=== PATIENT | male | born 1960 | race Caucasian/White ===

== ENCOUNTER 2021-02-15 19:52 | Observation (INO) | payer OTHER ==
[~2021-02-15] VITALS: Ht 160 cm; Wt 60.0 kg
--- NOTE | 2021-02-15 20:01 | NUR ---
PT PRESENTS TO ED VIA EMS WITH AMS. PT FOUND IN CELL UNRESPONSE. RECEIVED 2 DOSES NARCAN. GCS 10. PT ESCORTED VIA EMS TO ROOM 9
[2021-02-15 20:32] LABS: HEMATOCRIT 44.9 % (39.0-50.0); HEMOGLOBIN 14.8 g/dl (14.0-18.0); IMMATURE GRANULOCYTES 0.6 % (0.0-5.0); NEUT# 11.76 thou/uL (1.82-7.42); RED BLOOD COUNT 5.1 mill/uL (4.70-6.10); RED CELL DISTRI WIDTH 12.7 % (11.5-15.5)
[2021-02-15 20:52] LABS: ACT PARTIAL THROMBO TIME 20.6 SECONDS (20.0-32.5); ALBUMIN 4.2 g/dL (3.2-5.0); ALKALINE PHOSPHATASE 136 u/l (38-126); ANION GAP 17 (6-22 (CALC)); BUN 38 mg/dL (9-20); BUN/CREATININE RATIO 34 (12-20 (CALC)); CARBON DIOXIDE 22 mmol/l (22-30); CHLORIDE 106 mmol/l (95-108); CREATININE 1.1 mg/dL (0.7-1.3); ETHYL ALCOHOL 0 mg/dl (0-30); GFR > 60 ML/MIN (>=60 (CALC)); GFR FOR AFR.AMER. > 60 ML/MIN (>=60 (CALC)); LIPASE 87 u/l (23-300); MAGNESIUM 2.1 mg/dL (1.6-2.3); POTASSIUM 4.4 mmol/l (3.5-5.1); PROTHROMBIN TIME 10.5 SECONDS (9.0-12.5); SGOT/AST 88 u/l (17-59); SODIUM 141 mmol/l (137-146); TOTAL PROTEIN 7.6 g/dL (6.3-8.2)
--- NOTE | 2021-02-15 22:44 | NUR ---
800 CC URINE FROM STRAIGHT CATH.
[2021-02-15 22:45] LABS: URINE BILIRUBIN - DIPSTICK NEGATIVE (NEGATIVE); URINE BLOOD DIPSTICK LARGE (NEGATIVE); URINE COLOR YELLOW; URINE GLUCOSE - DIPSTICK >=1000 mg/dL (NEGATIVE); URINE KETONE 15 mg/dL (NEGATIVE); URINE LEUK ESTERASE NEGATIVE (NEGATIVE); URINE PROTEIN - DIPSTICK 30 mg/dL (NEG-TRACE); URINE SPECIFIC GRAVITY >=1.030; URINE UROBILINOGEN - DIPSTICK 0.2 E.U./dL (0.2)
[2021-02-15 22:48] LABS: URINE NITRITE - DIPSTICK NEGATIVE (Negative)
[2021-02-15 22:53] LABS: URINE WBC 0-2 WBC/hpf (0-5)
--- NOTE | 2021-02-15 23:30 | NUR ---
PT'S ADMISSION STATUS CHANGED FROM ER TO ICU ADMIT UNDER DR. TERRY AT 2329. PT ADMITTED TO ICU ED HOLD AT THIS TIME.
[2021-02-16] VITALS (16 sets, daily range): BP systolic 146–205; BP diastolic 62–103
--- NOTE | 2021-02-16 01:05 | NUR ---
SMALL PASTY DARK BROWN BM, PT CLEANED AND LINENS CHANGED, GOWN APPLIED, WARM BLANKET APPLIED X2.
--- NOTE | 2021-02-16 01:10 | NUR ---
#18 FR OLIVEROS INSERTED W/O DIFFICULTY.
--- NOTE | 2021-02-16 01:24 | NUR ---
NEUROLOGY TELEPHONE CONSULT COMPLETED BETWEEN DR. ANTONIO AND DR. Olivia ROBISON.
--- NOTE | 2021-02-16 07:15 | NUR ---
PT TO ICU AT THIS TIME VIA STRETCHER WITH NURSE ROHITH AVALOS.
--- NOTE | 2021-02-16 07:47 | NUR ---
RECIEVED FROM ER 9 TO ICU 3 VIA STRETCHER. LETHARGIC DIFFICULT TO AROUSE AT TIMES. PUPILS REACTIVE TO LIGHT. RT PUPIL NOT ROUND HAS THE SHAPE OF AN UPSIDE DOWN TEAR DROP. TWO CORRECTIONS OFFICERS AT BEDSIDE. METAL CUFFS TO BILAT ANKLES AND LT WRIST. OLIVEROS CATH PATENT DRAINING STRAW COLOR FLUID. 18G TO RT AC. NO OPEN AREAS. FUNGAL LIKE REDNESS TO RT HAND AND NELIDA AREA.
--- NOTE | 2021-02-16 09:05 | NUR ---
DR TERRY IN TO SEE PT.
[2021-02-16 10:41] LABS: TSH, 3RD GENERATION 0.33 uIU/mL (0.47 - 4.68)
--- NOTE | 2021-02-16 11:20 | NUR ---
PT TO GO FOR MRI. TRANSPORTED VIA STRETCHER.
--- NOTE | 2021-02-16 12:29 | NUR ---
RETURNED FROM MRI.
--- NOTE | 2021-02-16 14:16 | NUR ---
RECIEVED CRITICAL MRI BRAIN RESULTS. MADE AWARE.
--- NOTE | 2021-02-16 14:27 | NUR ---
RECEIVED ORDERS TO TRANSFER TO HIGHER LEVEL OF CARE.
--- NOTE | 2021-02-16 15:51 | NUR ---
AWAITING BED ASSIGNMENT FROM [facility].
--- NOTE | 2021-02-16 17:17 | NUR ---
RECEIVED CALL FROM LORI AT TRANSFER CENTER PT TO GO TO ROOM 5B08 AT [facility].
--- NOTE | 2021-02-16 17:27 | NUR ---
SPOKE WITH KRIS AT TRANSPORT CENTER ETA FOR PICKUP IS 45MIN-1HR.
--- NOTE | 2021-02-16 17:36 | NUR ---
REPORT GIVEN TO RN AT [facility].
--- NOTE | 2021-02-16 18:36 | NUR ---
TRANSPORT TEAM ON SITE.
--- NOTE | 2021-02-16 18:39 | NUR ---
TRANSPORT TEAM AND CORRECTIONS OFFICERS TRANSFERRED PT FROM BED TO STRETCHER.
== END 2021-02-16 18:39 | disposition short-term general hospital (02) | DRG 65 ==
LOC: ED 19:52 → ED-I 23:08 → ED 23:29 → ED-I 23:30 → ICU 02-16 07:45
PROVIDERS: ADMIT Hospitalist; ATTEND Hospitalist
PROC: 0T9B70Z Drainage of Bladder with Drainage Device, Via Natural or Artificial Opening (ICD-10-PCS; principal; 2021-02-16)
DX: I63.81 Other cerebral infarction due to occlusion or stenosis of small artery (principal); E87.2 Acidosis; G93.49 Other encephalopathy; E86.0 Dehydration; G93.89 Other specified disorders of brain; E11.65 Type 2 diabetes mellitus with hyperglycemia; I10 Essential (primary) hypertension; B19.20 Unspecified viral hepatitis C without hepatic coma

== ENCOUNTER 2021-04-02 08:48 | Emergency (ER) | payer OTHER ==
[~2021-04-02] VITALS: Ht 160 cm; Wt 68.0 kg
[2021-04-02 09:31] LABS: GFR > 60 ML/MIN (>=60 (CALC)); GFR FOR AFR.AMER. > 60 ML/MIN (>=60 (CALC))
[2021-04-02 09:58] LABS: ANION GAP 11 (6-22 (CALC)); CARBON DIOXIDE 25 mmol/l (22-30); CHLORIDE 106 mmol/l (95-108); CREATININE 0.8 mg/dL (0.7-1.3); ETHYL ALCOHOL 0 mg/dl (0-30); GFR > 60 ML/MIN (>=60 (CALC)); GFR FOR AFR.AMER. > 60 ML/MIN (>=60 (CALC)); LIPASE 317 u/l (23-300); POTASSIUM 3.6 mmol/l (3.5-5.1); SODIUM 139 mmol/l (137-146)
[2021-04-02 10:08] LABS: ACT PARTIAL THROMBO TIME 24.1 SECONDS (20.0-32.5)
[2021-04-02 10:28] LABS: TSH, 3RD GENERATION 0.89 uIU/mL (0.47 - 4.68)
[2021-04-02 10:30] LABS: ALBUMIN 2.7 g/dL (3.2-5.0); ALKALINE PHOSPHATASE 65 u/l (38-126); BILIRUBIN, TOTAL 0.6 mg/dL (0.0-1.4); BUN 17 mg/dL (9-20); BUN/CREATININE RATIO 21 (12-20 (CALC)); MAGNESIUM 1.1 mg/dL (1.6-2.3); SGOT/AST 16 u/l (17-59); TOTAL PROTEIN 5.3 g/dL (6.3-8.2)
[2021-04-02 10:38] LABS: HEMATOCRIT 32.4 % (39.0-50.0); HEMOGLOBIN 10.7 g/dl (14.0-18.0); IMMATURE GRANULOCYTES 1.2 % (0.0-5.0); MEAN CELL VOLUME 88.8 fL CALC (80.0-100.0); MEAN CORPUSCULAR HGB 29.3 pG CALC (26.0-32.0); NEUT# 5.9 thou/uL (1.82-7.42); RED BLOOD COUNT 3.65 mill/uL (4.70-6.10); RED CELL DISTRI WIDTH 13.7 % (11.5-15.5)
[2021-04-02 10:47] VITALS: BP 103/61
== END 2021-04-02 10:47 | disposition short-term general hospital (02) | DRG 65 ==
LOC: ED 08:48
DX: I62.9 Nontraumatic intracranial hemorrhage, unspecified (principal); I69.951 Hemiplegia and hemiparesis following unspecified cerebrovascular disease affecting right dominant side; R47.01 Aphasia; R20.0 Anesthesia of skin; I69.920 Aphasia following unspecified cerebrovascular disease; B19.20 Unspecified viral hepatitis C without hepatic coma; I69.998 Other sequelae following unspecified cerebrovascular disease; R26.89 Other abnormalities of gait and mobility; I10 Essential (primary) hypertension; E11.319 Type 2 diabetes mellitus with unspecified diabetic retinopathy without macular edema; I25.10 Atherosclerotic heart disease of native coronary artery without angina pectoris; M48.061 Spinal stenosis, lumbar region without neurogenic claudication; R29.705 NIHSS score 5; Z79.84 Long term (current) use of oral hypoglycemic drugs; Z20.822 Contact with and (suspected) exposure to COVID-19

== ENCOUNTER 2021-08-10 10:24 | Inpatient (IN) | payer OTHER ==
[2021-08-10] VITALS (48 sets, daily range): BP systolic 88–158; BP diastolic 56–86
[~2021-08-10] VITALS: Ht 160 cm; Wt 59.0 kg
--- NOTE | 2021-08-10 10:24 | NUR ---
PT TO ROOM 15 VIA EMS. SHACKLES INTACT ACCOMPANIED BY GUARD.
[2021-08-10 10:49] LABS: GFR > 60 ML/MIN (>=60 (CALC)); GFR FOR AFR.AMER. > 60 ML/MIN (>=60 (CALC))
[2021-08-10 10:58] LABS: IMMATURE GRANULOCYTES 0.6 % (0.0-5.0); MEAN CELL VOLUME 89.6 fL CALC (80.0-100.0); MEAN CORPUSCULAR HGB 29.7 pG CALC (26.0-32.0); MEAN CORPUSCULAR HGB CONC 33.2 g/dL CAL (32.0-36.0); NEUT# 7.97 thou/uL (1.82-7.42); RED BLOOD COUNT 4.71 mill/uL (4.70-6.10); RED CELL DISTRI WIDTH 12.8 % (11.5-15.5)
[2021-08-10 11:00] LABS: HEMATOCRIT 42.2 % (39.0-50.0)
[2021-08-10] MEDS ORDERED: ASPIRIN81 MG PO (11:05)
[2021-08-10] MEDS ORDERED: GLIPIZIDE ER5 MG PO (11:06)
[2021-08-10] MEDS ORDERED: LIPITOR20 M1 PO (11:06)
[2021-08-10] MEDS ORDERED: LISINOPRIL2.5 MG PO (11:07)
[2021-08-10] MEDS ORDERED: METFORMIN HCL1000 M1 PO (11:07)
[2021-08-10] MEDS ORDERED: MILK OF MAG30 ML/UDC PO (11:08)
[2021-08-10 11:14] LABS: BUN 26 mg/dL (8-23); BUN/CREATININE RATIO 22 (12-20 (CALC)); CARBON DIOXIDE 27 mmol/l (22-30); CHLORIDE 104 mmol/l (95-108); CREATININE 1.2 mg/dL (0.7-1.3); ETHYL ALCOHOL 0 mg/dl (0-30); GFR > 60 ML/MIN (>=60 (CALC)); GFR FOR AFR.AMER. > 60 ML/MIN (>=60 (CALC)); LIPASE 235 u/l (23-300); SGOT/AST 23 u/l (19-48); SODIUM 139 mmol/l (137-146)
[2021-08-10 11:15] LABS: ALBUMIN 4.2 g/dL (3.2-5.0); ALKALINE PHOSPHATASE 107 u/l (38-126); ANION GAP 13 (6-22 (CALC)); BILIRUBIN, TOTAL 0.9 mg/dL (0.0-1.4); POTASSIUM 4.5 mmol/l (3.5-5.1); TOTAL PROTEIN 7.5 g/dL (6.3-8.2)
[2021-08-10 11:17] LABS: ACT PARTIAL THROMBO TIME 23.6 SECONDS (20.0-32.5); PROTHROMBIN TIME 10.1 SECONDS (9.0-12.5)
--- NOTE | 2021-08-10 12:00 | NUR ---
PATIENT EVALUATION BY TELE NEURO. PREVIOUS STROKE WAS 3 MONTHS AGO. FALL ON SUNDAY WITH EXACERBATION OF LEFT SIDED WEAKNESS ON SUNDAY.
[2021-08-10 13:38] LABS: URINE BLOOD DIPSTICK NEGATIVE (NEGATIVE); URINE COLOR YELLOW; URINE GLUCOSE - DIPSTICK NEGATIVE (NEGATIVE); URINE KETONE TRACE mg/dL (NEGATIVE); URINE LEUK ESTERASE NEGATIVE (NEGATIVE); URINE PH 5.5 (4.5-8.0); URINE PROTEIN - DIPSTICK NEGATIVE (NEG-TRACE); URINE SPECIFIC GRAVITY >=1.030; URINE UROBILINOGEN - DIPSTICK 0.2 E.U./dL (0.2)
[2021-08-10 13:52] LABS: URINE BILIRUBIN - DIPSTICK NEGATIVE (NEGATIVE); URINE NITRITE - DIPSTICK NEGATIVE (Negative)
--- NOTE | 2021-08-10 15:55 | NUR ---
PATIENT HAS BEEN IN ROOM 15 WITH GUARDS AT BEDSIDE. HE HAS NO CHANGE IN HIS CONDITION SINCE ARRIVAL.
--- NOTE | 2021-08-10 16:04 | NUR ---
DISCUSSED CHANGING PO ASA TO RECTAL UNTIL SPEECH CAN EVALUATE PATIENT. DR. ANTONIO UNABLE TO INPUT RECTAL ASA DUE TO CHART BEING LOCKED FOR MEDICATION INPUT. INFORMING ICU.
--- NOTE | 2021-08-10 16:09 | NUR ---
RECTAL ASA ORDER INITIATED. ADMINISTERED. PATIENT TO ICU.
--- NOTE | 2021-08-10 16:45 | NUR ---
PT ARRIVED TO UNI ALERT AND ORIENTED. FOLLOWING COMMANDS. LEFT ARM FLACID, LEFT LEG DRIFTS AND HITS BED. RIGHT ARM AND RIGHT LEG STRONG. PARCIAL LEFT SIDED FACIAL PARALYSIS. PT DOES WEAR GLASSES, BUT DOES NOT HAVE IT WITH HIM. DIFFICULTY READING BUT ABLE TO IDENTIFY IMAGES. PT DOES WISPER VERY LOW WHEN SPEAKING, INFORMED BY GUARDS AND PT THAT IS BASELINE SINCE HIS LAST STROKE. PT REPORTS PAIN ON HIS LEFT SIDE. VITAL SIGNS WITHIN NORMAL LIMITS. CALL LIGHT WITHIN REACH. GUARDS AT BEDSIDE.
--- NOTE | 2021-08-10 19:53 | NUR ---
ASSESSMENT COMPLETED NOTED. PATIENT IS SITTING UP IN BED WATCHING TELEVISION. STATE OFFICERS ARE AT THE BEDSIDE. NO CURRENT COMPLAINTS OF PAIN OR DISCOMFORT. PATIENT IS NOTED TO HAVE AN OCCASIONAL COUGH WITH THROAT CLEARING. PATIENT IS ALSO NOTED TO BE FLACCID WITH THE LEFT ARM AND MINIMAL MOVEMENT OF THE LEFT LEG. NO ACUTE DISTRESS NOTED AT THIS TIME. I WILL CONTINUE TO MONITOR NO FURTHER COMMENTS AT THIS TIME.
--- NOTE | 2021-08-10 22:00 | NUR ---
Patient is assited to the bedside commode. The patient is unable to stand on his on due to left sided weakness. Patient had a large soft light brown bowel movement. The patient was cleaned and repositioned back to bed.
[2021-08-11] VITALS (90 sets, daily range): BP systolic 93–186; BP diastolic 56–102
--- NOTE | 2021-08-11 | NUR ---
Patient is resting quietly in bed. No acute changes noted.
--- NOTE | 2021-08-11 03:39 | NUR ---
Patient is resting quietly in bed. Patient is noted to snore and oxygen level drops to high 80's, nasal canula at 2 liters placed of added oxygen support.
--- NOTE | 2021-08-11 04:01 | NUR ---
Patient is resting quietly in bed. Patient is about to get his am labs drawn. No further comments at this time.
[2021-08-11 04:26] LABS: HEMATOCRIT 36.9 % (39.0-50.0); HEMOGLOBIN 12.4 g/dl (14.0-18.0); MEAN CELL VOLUME 88.9 fL CALC (80.0-100.0); MEAN CORPUSCULAR HGB 29.9 pG CALC (26.0-32.0); MEAN CORPUSCULAR HGB CONC 33.6 g/dL CAL (32.0-36.0); RED BLOOD COUNT 4.15 mill/uL (4.70-6.10); RED CELL DISTRI WIDTH 12.8 % (11.5-15.5)
[2021-08-11 04:43] LABS: ANION GAP 9 (6-22 (CALC)); BUN 24 mg/dL (8-23); BUN/CREATININE RATIO 24 (12-20 (CALC)); CALCULATED LDLCHOLESTEROL 34 mg/dL (62-129 (CALC)); CARBON DIOXIDE 24 mmol/l (22-30); CHLORIDE 110 mmol/l (95-108); CHOLESTEROL HDL RATIO 2.5 (<4.4 (CALC)); GFR > 60 ML/MIN (>=60 (CALC)); GFR FOR AFR.AMER. > 60 ML/MIN (>=60 (CALC)); HDL CHOLESTEROL 36 mg/dL (>=40); MAGNESIUM 1.7 mg/dL (1.6-2.3); POTASSIUM 4.1 mmol/l (3.5-5.1); SODIUM 138 mmol/l (137-146); TOTAL CHOLESTEROL 88 mg/dl (0-199); TOTAL TRIGLYCERIDES 91 mg/dl (30-149); VLDL CHOLESTROL 18 mg/dl (4-45 (CALC))
--- NOTE | 2021-08-11 06:24 | NUR ---
Patient continues to rest quietly in bed. No acute changes noted at this time. I will continue to monitor.
[2021-08-11] MEDS ORDERED: HYDRALAZINE50 MG PO (09:43)
--- NOTE | 2021-08-11 10:34 | NUR ---
PT SEEN AWAKE, ALERT, ORIENTED X 3. PT COMMUNICATES IN WHISPER, LACKING STRENGTH TO SPEAK NORMAL VOLUME. PT IS WEAK ON RIGHT SIDE FROM PREVIOUS STROKE, NOW SEEN FLACCID TO LEFT ARM AND LEG FROM NEW STROKE. NIH SCALE WAS 9 UPON INITIAL ASSESSMENT. GUARDS X 2 AT BEDSIDE.
--- NOTE | 2021-08-11 14:09 | NUR ---
PT REMAINS BEFORE, AT REST IN THE BED WITHOUT ABILITY TO STAND. PHYSICAL THERAPIST RO AT BEDSIDE FOR EVALUATION AND TREATMENT. PT PROVIDED LORTAB FOR LEFT SHOULDER PAIN.
--- NOTE | 2021-08-11 16:06 | NUR ---
PT REMAINS BEFORE, NO CHANGE IN STATUS. PT PROVIDED PAIN MED FOR LEFT SHOULDER DISCOMFORT. NO EXACERBATION OF STROKE NOTED.
--- NOTE | 2021-08-11 19:00 | NUR ---
REPORT RECEIVED FROM Juanito HERNANDEZ AT BEDSIDE. CARE OF PT ASSUMED AT THIS TIME.
--- NOTE | 2021-08-11 20:03 | NUR ---
POINT OF CARE GLUCOSE 192mg/dl REPORTED BY Kirsty PINO CNA.
--- NOTE | 2021-08-11 21:14 | NUR ---
SCHEDULED MEDICATION AND REQUESTED PRN LORTAB FOR LEFT SHOULDER PAIN ADMINISTERED. SEE E-MAR. WATER PROVIDED PER PT'S REQUEST. PT DENIES FURTHER NEEDS OR REQUESTS AT THIS TIME. PT SWALLOWS PILLS WHOLE W/O DIFFICULTY. CALL MELO WITHIN REACH. AGREES TO CALL PRN.
--- NOTE | 2021-08-11 22:10 | NUR ---
EHR ORDER FOR AM LABS RECEIVED, SEE PHYSICIAN ORDERS.
[2021-08-12] VITALS (41 sets, daily range): BP systolic 120–188; BP diastolic 68–106
--- NOTE | 2021-08-12 00:04 | NUR ---
PT APPEARS TO BE SLEEPING COMFORTABLY. RESPIRATIONS REGULAR AND UNLABORED. NO APPARENT DISTRESS. CALL MELO REMAINS WITHIN REACH.
--- NOTE | 2021-08-12 02:11 | NUR ---
PT APPEARS TO BE SLEEPING COMFORTABLY. RESPIRATIONS REGULAR AND UNLABORED. NO APPARENT DISTRESS. CALL MELO REMAINS WITHIN REACH.
--- NOTE | 2021-08-12 04:19 | NUR ---
PT APPEARS TO BE SLEEPING COMFORTABLY. RESPIRATIONS REGULAR AND UNLABORED. NO APPARENT DISTRESS. CALL MELO REMAINS WITHIN REACH.
--- NOTE | 2021-08-12 05:10 | NUR ---
Anthony BRADLEY CPT AT BEDSIDE COLLECTING AM LABS.
[2021-08-12 05:34] LABS: HEMATOCRIT 35.2 % (39.0-50.0); HEMOGLOBIN 12.2 g/dl (14.0-18.0); MEAN CELL VOLUME 87.6 fL CALC (80.0-100.0); MEAN CORPUSCULAR HGB 30.3 pG CALC (26.0-32.0); MEAN CORPUSCULAR HGB CONC 34.7 g/dL CAL (32.0-36.0); RED BLOOD COUNT 4.02 mill/uL (4.70-6.10); RED CELL DISTRI WIDTH 12.5 % (11.5-15.5)
[2021-08-12 05:59] LABS: ANION GAP 8 (6-22 (CALC)); BUN 18 mg/dL (8-23); BUN/CREATININE RATIO 18 (12-20 (CALC)); CARBON DIOXIDE 24 mmol/l (22-30); CHLORIDE 108 mmol/l (95-108); GFR > 60 ML/MIN (>=60 (CALC)); GFR FOR AFR.AMER. > 60 ML/MIN (>=60 (CALC)); MAGNESIUM 1.6 mg/dL (1.6-2.3); POTASSIUM 4.1 mmol/l (3.5-5.1); SODIUM 136 mmol/l (137-146)
--- NOTE | 2021-08-12 08:00 | NUR ---
patient is a/o x3, able to make needs known. very soft spoken. some visiual isusses noted when testing. denies pain but stated he feels numbness on his entire left side. stated he had a prior stroke and left side was weak but now he is unable to move it at all. left facial droop. unable to lift left arm or leg. no sensory sensation on left side, including his face, to the touch. was able to say "cant teach an old dog new tricks" line but it did takes some time, he stumbled on some words but corrected it and said it slowly and did better. right hand dispensary attendant strong, no right arm drift. right leg lifted slightly off the bed but patient stated "my leg feels weak, possibly from laying in bed too long". he was handcuffed on bilateral legs. some small negro were made on his lower legs from the handcuffs. adjusted them to move off those marked areas. strong pulses. unable to lift left leg. active bowel sounds. soft non tender abdomen. riggs is clean dry and intact no skin break down at this time. two gaurds at the bedside. no edema prsent at this time. BP is elevated. other vitals are stable. safety measures in place. will continue to monitor per hospital's policy.
--- NOTE | 2021-08-12 11:49 | NUR ---
SPOKE TO [facility] ABOUT TRANSFER
--- NOTE | 2021-08-12 12:43 | NUR ---
PATIENT TRIED TO HAVE A BOWEL MOVEMENT, WAS UNSUCCESFUL, WASHED HIM UP, PARTIAL BATH. SAT HIM UP FOR LUNCH. MEDICATION GIVEN.
--- NOTE | 2021-08-12 13:23 | NUR ---
SPOKE WITH LISA DEVRIES, A PATIENT AMBASSADOR AT THE NURSING HOME, , UPDATE ABOUT TRANSFER GIVEN.
--- NOTE | 2021-08-12 14:00 | NUR ---
PATIENT IS WATCHING TV, GUARDS AT BEDSIDE
--- NOTE | 2021-08-12 18:00 | NUR ---
PATIENT SITING UP WATCHING TV
--- NOTE | 2021-08-12 19:35 | NUR ---
TELENEUROLOGY CONSULT AT BEDSIDE.
--- NOTE | 2021-08-12 20:00 | NUR ---
OLIVEROS CATHETER DISCONTINUED. REPLACED WITH CONDOM CATHETER. 1400ML CLEAR SALOMÓN URINE EMPTIED FROM OLIVEROS.
--- NOTE | 2021-08-12 20:30 | NUR ---
DR. LYON MADE AWARE OF TELENEUROLOGY CONSULT AND RECCOMENDATIONS.
[2021-08-13] VITALS (12 sets, daily range): BP systolic 83–170; BP diastolic 54–86
--- NOTE | 2021-08-13 07:41 | NUR ---
PT IS SLEEPING, EASILY AROUSED. PT HAS TWO GUARDS AT BEDSIDE, PT HAS SHACKLES TO BLE. PT HAS NO SENSATION TO LEFT EXTREMITIES. ABLE TO MOVE RIGHT EXTREMITIES. PT DOES FOLLOW COMMANDS, ANSWERS QUESTIONS APPROPRIATELY BUT PT DOES HAVE HOARSE VOICE. PT SHAKES HEAD NO TO ANY PAIN, SOB OR CP. PT NEEDS AHVE BEEN ADDRESSED AND SAFETY PRECAUTIONS ARE IN PLACE. WILL CONTINUE TO MONITOR.
--- NOTE | 2021-08-13 09:45 | NUR ---
SPOKE TO KATHI AT [facility], REGARDING PT D/C. HAS PLACED ORDERS. AWAITING FURTHER COMMUNICATION WITH PLAN OF D/C AND PLACEMENT.
[2021-08-13] MEDS ORDERED: PROTONIX40 M2 PO (09:57)
[2021-08-13] MEDS ORDERED: PLAVIX75 MG PO (09:57)
[2021-08-13] MEDS ORDERED: LISINOPRIL20 M1 PO (09:57)
[2021-08-13] MEDS ORDERED: ATORVASTATIN CA40 MG PO (09:57)
--- NOTE | 2021-08-13 11:58 | NUR ---
PT IS SITTING UP IN BED EATING LUNCH. PT HAS NO CHANGE TO ASSESSMENT PT HAS TWO GUARDS AT BEDSIDE. PT HAS NO C/O PAIN,SOB OR CP. WILL CONTINUE TO MONITOR PT.
--- NOTE | 2021-08-13 12:16 | NUR ---
was notified per agricultural education teacher shyam dela cruz , that this pt had been discharged per dr. bagley, but that [facility] had concerns about being able to take care of the pt, and that he would need to be sent per stretcher since left side of pt is flaccid and unable to get up and down per w/c. When i as miller supervisor called to facility and talked to nurse phoenix i informed them that we would have [facility] transer pt to facility to help facilitate the transfer, but was informed that they needed to talk to the head of their dept, because they didnt feel that they could take care of the pt and that he needed to be transferred to a different facility. spoke to Deyvi Hull icu director about situation and he advised me to call to get the number of business services administrator of [facility] and have them either call deyvi or deyvi would call them. Deyvi returned the call stating that we are to transfer pt back to their facility, whether it be [facility] or their own transportation that [facility] will take pt back.
--- NOTE | 2021-08-13 13:07 | NUR ---
PT HAS SIGNED D/C PAPERS, AWAITING TRANSPORT. PT HAS BEEN CLEANED UP WITH SECOND RN, PT HAS BEEN CHANGED INTO PT PERSONAL CLOTHES. PT HAS URINAL AT BEDSIDE. PT HAS BOTH GUARDS AT BEDSIDE. GUARD HAS SHACKLED PTS ANKLES. PT WILL BE MONITORED CLOSLEY UNTIL SAFELY DEPARTED
--- NOTE | 2021-08-13 13:35 | NUR ---
PT HAS BEEN TRANSFERRED ONTO [facility]. PT HAS ALL BELONGINGS. PT D/C PACKET WAS GIVEN TO FEMALE GUARD. PT STABLE.
== END 2021-08-13 14:00 | DRG 65 ==
LOC: ED 10:24 → ED-I 14:53 → ED 14:53 → ED-I 15:19 → ED 15:19 → ICU 15:28 → ED 15:28 → ICU 08-11 10:19
PROVIDERS: ADMIT Internal Medicine; ATTEND Internal Medicine
DX: I63.81 Other cerebral infarction due to occlusion or stenosis of small artery (principal); G81.04 Flaccid hemiplegia affecting left nondominant side; I69.351 Hemiplegia and hemiparesis following cerebral infarction affecting right dominant side; R29.713 NIHSS score 13; I10 Essential (primary) hypertension; E11.319 Type 2 diabetes mellitus with unspecified diabetic retinopathy without macular edema; I25.10 Atherosclerotic heart disease of native coronary artery without angina pectoris; I69.320 Aphasia following cerebral infarction; I69.398 Other sequelae of cerebral infarction; R26.89 Other abnormalities of gait and mobility; E11.65 Type 2 diabetes mellitus with hyperglycemia; F19.10 Other psychoactive substance abuse, uncomplicated; B19.20 Unspecified viral hepatitis C without hepatic coma; Z79.84 Long term (current) use of oral hypoglycemic drugs; Z79.82 Long term (current) use of aspirin; Z20.822 Contact with and (suspected) exposure to COVID-19
CPT/HCPCS: J1650; Q9967; S0164